=== PATIENT | male | born 1975 | race Caucasian/White ===

== ENCOUNTER 2020-11-21 02:47 | Emergency (ER) | payer OTHER ==
[~2020-11-21] VITALS: Ht 185.4 cm; Wt 64.0 kg
[2020-11-21 04:22] LABS: HEMATOCRIT 41.4 % (39.0-50.0); MEAN CELL VOLUME 97.4 fL CALC (80.0-100.0); MEAN CORPUSCULAR HGB 32.9 pG CALC (26.0-32.0); MEAN CORPUSCULAR HGB CONC 33.8 g/dL CAL (32.0-36.0); NEUT# 3.17 thou/uL (1.82-7.42); RED BLOOD COUNT 4.25 mill/uL (4.70-6.10)
[2020-11-21 04:49] LABS: ALKALINE PHOSPHATASE 62 u/l (38-126); AMYLASE 87 u/l (30-110); ANION GAP 11 (6-22 (CALC)); BUN 14 mg/dL (9-20); BUN/CREATININE RATIO 16 (12-20 (CALC)); CARBON DIOXIDE 28 mmol/l (22-30); CHLORIDE 105 mmol/l (95-108); CREATININE 0.9 mg/dL (0.7-1.3); GFR > 60 ML/MIN (>=60 (CALC)); GFR FOR AFR.AMER. > 60 ML/MIN (>=60 (CALC)); LIPASE 92 u/l (23-300); POTASSIUM 4.6 mmol/l (3.5-5.1); SGOT/AST 21 u/l (17-59); SODIUM 139 mmol/l (137-146)
[2020-11-21 04:51] LABS: ALBUMIN 4.7 g/dL (3.2-5.0); BILIRUBIN, TOTAL 0.9 mg/dL (0.0-1.4); TOTAL PROTEIN 7.7 g/dL (6.3-8.2)
[2020-11-21 05:26] LABS: URINE BILIRUBIN - DIPSTICK NEGATIVE (NEGATIVE); URINE BLOOD DIPSTICK NEGATIVE (NEGATIVE); URINE COLOR YELLOW; URINE GLUCOSE - DIPSTICK NEGATIVE (NEGATIVE); URINE KETONE NEGATIVE (NEGATIVE); URINE LEUK ESTERASE NEGATIVE (NEGATIVE); URINE PH 6.5 (4.5-8.0); URINE PROTEIN - DIPSTICK NEGATIVE (NEG-TRACE); URINE SPECIFIC GRAVITY 1.015; URINE UROBILINOGEN - DIPSTICK 0.2 E.U./dL (0.2)
[2020-11-21 05:29] LABS: URINE NITRITE - DIPSTICK NEGATIVE (Negative)
[2020-11-21 09:02] VITALS: BP 138/90
== END 2020-11-21 09:10 | disposition home or self-care (01) | DRG 730 ==
LOC: ED 02:47
PROVIDERS: Family Medicine
DX: N44.2 Benign cyst of testis (principal); D73.4 Cyst of spleen; Z20.822 Contact with and (suspected) exposure to COVID-19
CPT/HCPCS: Q9967